=== PATIENT | female | born 1995 | race Hispanic/Latino ===

== ENCOUNTER 2025-02-04 19:01 | Emergency (ER) | payer OTHER ==
[~2025-02-04] VITALS: Ht 139.7 cm; Wt 72.6 kg
[2025-02-04 19:14] VITALS: PULSE 98; RESP 20; TEMP 98.3
[2025-02-04 20:06] LABS: BASOPHILS % 0.1 % (0.0-1.0); EOSINOPHILS # (AUTO) 0.1 (0.0-0.4); EOSINOPHILS % 0.7 % (0.0-6.0); HEMATOCRIT 45.7 % (34.2-44.1); HEMOGLOBIN 15.3 g/dL (12.0-16.0); LYMPHOCYTES # (AUTO) 2.5 (1.0-3.2); LYMPHOCYTES % 15.6 % (18.0-39.1); MEAN CORPUSCULAR HEMOGLOBIN 29.7 pg (28-32); MEAN CORPUSCULAR HGB CONC 33.5 g/dL (31-35); MEAN CORPUSCULAR VOLUME 88.7 fL (81-99); MONOCYTES # (AUTO) 1.4 (0.2-0.8); MONOCYTES % 8.8 % (4.4-11.3); NEUTROPHILS # (AUTO) 11.9 (2.1-6.9); NEUTROPHILS % 74.2 % (38.7-80.0); PLATELET COUNT 296 x10e3/uL (140-360); RED BLOOD COUNT 5.15 x10e6/uL (3.6-5.1); RED CELL DISTRIBUTION WIDTH 13.2 % (11.7-14.4); WHITE BLOOD COUNT 16.08 x10e3/uL (4.8-10.8)
[2025-02-04 20:08] LABS: BILIRUBIN,URINE NEGATIVE (NEGATIVE); CLARITY,URINE CLEAR (CLEAR); COLOR,URINE YELLOW (YELLOW); GLUCOSE, URINE NEGATIVE (NEGATIVE); KETONES,URINE NEGATIVE (NEGATIVE); LEUKOCYTE ESTERASE ,URINE NEGATIVE (NEGATIVE); NITRITE,URINE NEGATIVE (NEGATIVE); PH,URINE 5.5 (5 - 7); PROTEIN,URINE DIPSTICK NEGATIVE (NEGATIVE); RBC,URINE 0-5 /HPF (0-5); URINE UROBILINOGEN 0.2 mg/dL (0.2 - 1); WBC,URINE (MAN) 0-5 /HPF (0-5)
[2025-02-04] MEDS: SODIUM CHLORIDE 0.9% 1000ML 1,000 ML IV ONE (20:12)
[2025-02-04] MEDS: ONDANSETRON HCL INJ 2MG/ML 2ML 2 MG/ML VIAL IV STA (20:13)
[2025-02-04 20:18] LABS: LIPASE 20 U/L (8-78)
[2025-02-04 20:20] LABS: ALBUMIN 3.7 g/dL (3.5-5.0); ANION GAP 15.7 mmol/L (8-16); BILIRUBIN,TOTAL 0.4 mg/dL (0.2-1.2); CREATININE, SERUM 0.78 mg/dL (0.57-1.11); POTASSIUM 3.7 mmol/L (3.5-5.1); TOTAL PROTEIN 7.3 g/dL (6.5-8.1)
[2025-02-04 20:26] LABS: BACTERIA,URINE MODERATE /HPF; EPITHELIAL CELLS,URINE MODERATE /LPF
[2025-02-04 20:40] LABS: TROPONIN I < 0.001 ng/mL (0-0.300)
[2025-02-04 21:15] LABS: PREGNANCY TEST, URINE NEGATIVE (NEGATIVE)
[2025-02-04] MEDS ORDERED: DICYCLOMINE HCL20 MG PO (23:14)
[2025-02-04] MEDS ORDERED: PANTOPRAZOLE SO40 MG PO (23:14)
[2025-02-04] MEDS ORDERED: ONDANSETRON ODT4 MG SL (23:14)
[2025-02-05 00:47] VITALS: BP 127/84; PULSE 71; RESP 18; TEMP 97.5; O2SAT 98
== END 2025-02-04 23:17 | disposition home or self-care (01) ==
LOC: EDBD 19:01 → ER 19:36
DX: R10.10 Upper abdominal pain, unspecified (principal); K29.70 Gastritis, unspecified, without bleeding; R11.2 Nausea with vomiting, unspecified
CPT/HCPCS: 36415; 80053; 81001; 81025; 83690; 84484; 85025; 93005; 99283; J2405; J2470; J7030